=== PATIENT | male | born 1970 | race Caucasian/White ===

== ENCOUNTER → 2020-01-22 07:35 | Outpatient (CLI) | payer OTHER, SELFPAY ==
[2016-10-03 11:35] VITALS: BMI 26.4
[2020-01-22 08:40] LABS: Cholesterol 216 mg/dL (200); Glucose 107 mg/dL (74-106); High Density Lipoprotein 48 mg/dL; Triglycerides 128 mg/dL; Very Low Density Lipoprotein 26 mg/dL (5-40)
== END ==
PROVIDERS: PCP Family Medicine; Referring Provider Family Medicine; Visit Provider Family Medicine
DX: Z13.220 Encounter for screening for lipoid disorders (principal); Z13.1 Encounter for screening for diabetes mellitus
CPT/HCPCS: 36415; 80061; 82947

== ENCOUNTER → 2020-03-31 14:55 | Outpatient (CLI) | payer OTHER, SELFPAY ==
[2016-10-03 11:35] VITALS: BMI 26.4
== END ==
PROVIDERS: PCP Family Medicine; Referring Provider Family Medicine; Visit Provider Family Medicine
DX: Z20.828 Contact with and (suspected) exposure to other viral communicable diseases (principal)
CPT/HCPCS: 87635; U0003

== ENCOUNTER 2020-04-12 07:57 | Day surgery (SDC) | payer OTHER, SELFPAY ==
[2016-10-03 11:35] VITALS: BMI 26.4
[2020-04-12 08:15] VITALS: BP 124/96; PULSE 56; RESP 16; TEMP 36.8; O2SAT 99; BMI 27.1
[2020-04-12] MEDS: Lactated Ringers 1,000 ML 100 ML IV (08:52)
--- NOTE | 2020-04-12 09:04 | H&P.OPEN ---
History of Present Illness Date of Admission: 04/12/20 The patient is a 49 year old M notes for colonoscopy. Patient's father had colon cancer at age 72. He has never had a colonoscopy Past Medical/Surgical History - Planned Operation Planned Operative Procedure/s: COLONOSCOPY Date of Operative Procedure: 04/12/20 Permit Signed: Yes S.O.S: No Is This Patient Having a Total Joint: No - Previous Hospitalizations/Surgeries HX of Surgeries: 2012 HERNIA REPAIR. VASECTOMY 2015. GANGLION CYST RIGHT WRIST 1995. WISDOM TEETH REOMVAL 1986. R CLAVICLE ORIF 10/03/16 Any Problems With Anesthesia: Yes - AGITATION, SLOW RECOVERY You/Your Family Experience Fever (Hyperthermia) With Anes: No Cholinesterase deficiency: No - Cardiovascular Hx Chest Pain within Last 2 months: No Hx of Irregular Heartbeat and/or Afib: No Hx Heart Attack: No Hx Congestive Heart Failure: No Hx Rheumatic Fever: No Hx Hypertension: No Hx Internal Defibrillator: No Hx Pacemaker: No Hx Cardiac Catheterization: No Hx Cardiac Surgery/Stents/Etc.: No Hx Stress Test: No HX Edema: No Hx Pain in Legs when Walking/Leg Cramps: No - Respiratory Chronic Cough: No HX of Shortness of Breath: No Hoarseness: No Hx Chronic Obstructive Pulmonary Disease (COPD): No Hx Asthma: Yes - EXERCISED INDUCED, SEASONAL ALLERGIES Hx Emphysema: No Hx Sleep Apnea: No CPAP: No Hx Oxygen Use at Home: No Hx Respiratory Tract Infection/Cold (presently): No Do You Snore Loudly (louder than talking or can be heard): No Do You Often Feel Tired/ Fatigued/ Sleepy Dring Daytime?: No Has Anyone Observed You Stop Breathing During Sleep?: No Result (for STOP score): Negative Hx Smoking: No Smoking Status: Never smoker - Gastrointestinal Hx Gastroesophageal Reflux: No - OCCASIONAL HEARTBURN Hx Gastrointestinal Disorders: No Hx Gastrointestinal Bleed: No Hx Ulcer: No Hx Hiatal Hernia: No Difficulty Chewing/Swallowing: No Recent Onset of Swallowing Problems: No Special diet followed at home: No Hx Unplanned Weight Loss of 20#: No HX Unplanned Weight Gain of 20#: No - Neurological Hx Seizures: No HX Syncope/Blackout Spells/Unconsciousness: No Hx CVA/Stroke: No Hx Transient Ischemic Attacks (TIA): No Hx Multiple Sclerosis: No Hx Parkinson's Disease: No Hx Head/Neck Injury: Yes - CONCUSSION 1983 Hx Headaches: No Hx Back Injury/Pain: No Recent Onset of Speech Difficulty: No Restless Legs: No Does patient have nerve stimulator: No - Blood Disorder Hx Leukemia: No Bleeding Tendencies: No Hx Deep Vein Thrombosis: No Hx High Cholesterol: No Blood Transmitted Disease: No Hx Hepatitis: No Hx Cirrhosis: No Hx Anemia: No Hx Blood Disorders: No - Genitourinary Hx Renal Disease: No - Musculoskeletal Hx Arthritis: Yes - HANDS Hx Rheumatoid Arthritis: No Hx Gout: No Recent Onset of an Orthopedic Problem: No - Endocrine Hx Diabetes: No Thyroid Disease: No Hx Steroid Therapy: No - Psycho/Social Hx Substance Use: No Hx Alcohol Use: Yes - OCCASIONAL GLASS WINE Hx Anxiety: No Hx Depression: No Mental Illness: No Hx Dementia: No - Miscellaneous Hx Cancer: No Recent Exposure to Contagious Disease: No Active MRSA: No Hx of C-Diff: No Any Loose Teeth: No Allergies No Known Allergies Allergy (Verified 04/06/20 15:51) - Discharge Is Pt Admitted From a Retirement, or a Detention: No Who Could Help: After D/C, Where Do you Plan to Go: Return Home - Physical Exam Vitals/I&O's: Vital Signs Temp Pulse Resp BP Pulse Ox 98.2 F 56 L 16 124/96 H 99 04/12/20 08:15 04/12/20 08:15 04/12/20 08:15 04/12/20 08:15 04/12/20 08:15 Oxygen Delivery Method Room Air Weight: 172 lb 13.478 oz Body Mass Index (BMI) 27.1 General: Alert, Oriented x3 Lungs: Clear to auscultation Cardiovascular: Regular rate, Regular Rhythm, No murmurs Abdomen: Bowel Sounds Present, Soft, Non Tender, Non-Distended Current Medications Lactated Ringer's () 1,000 mls @ 100 mls/hr IV .Q10H APPLE Last Admin: 04/12/20 08:52 Dose: 100 mls/hr Documented by: Assessment/Plan I will be perform a colonoscopy. Procedure Criteria Procedure Type: Elective COVID Risk Discussion: The surgeon/proceduralist and patient have discussed in detail the risk of exposure to and/or potential harm posed by the COVID-19 virus with having a surgery/procedure at this time versus the risk of delaying the surgery/procedure. It is not possible to know either the risk of delaying the surgery or procedure or chance of getting an infection with perfect accuracy, but a joint decision was made between the patient and the surgeon/proceduralist to proceed at this time with the scheduled surgery/procedure as indicated on the consent form. Surgery Risks - Colonoscopy Risks Include but are not Limited To: Risks include but are not limited to: Bleeding, perforation requiring further surgery, inability to complete colonoscopy requiring barium enema.
[2020-04-12 09:37] VITALS: BP 113/73; BP 124/96; PULSE 62; RESP 14; TEMP 36.9; O2SAT 97
[2020-04-12 09:40] VITALS: BP 108/70; BP 124/96; PULSE 61; RESP 14; O2SAT 96
--- NOTE | 2020-04-12 09:40 | OP.COLON_ITS ---
Patient Name: Carlton Sagastume Procedure Date: 04/12/2020 9:08 AM Date of : 1970 Age: 49 Procedure: Colonoscopy Indications: Screening in patient at increased risk: Family history of 1st-degree relative with colorectal cancer Providers: Deven Friedman MD Referring MD: Don Pacheco Medicines: See the Anesthesia note for documentation of the administered medications Patient Profile: This is a 49 year old male. Refer to note in patient chart for documentation of history and physical. Last Colonoscopy: none. The patient's first colonoscopy is today. Complications: No immediate complications. Procedure: Pre-Anesthesia Assessment: - Prior to the procedure, a History and Physical was performed, and patient medications and allergies were reviewed. The patient's tolerance of previous anesthesia was also reviewed. The risks and benefits of the procedure and the sedation options and risks were discussed with the patient. All questions were answered, and informed consent was obtained. Prior Anticoagulants: The patient has taken no previous anticoagulant or antiplatelet agents. ASA Grade Assessment: II - A patient with mild systemic disease. After reviewing the risks and benefits, the patient was deemed in satisfactory condition to undergo the procedure. After I obtained informed consent, the scope was passed under direct vision. Throughout the procedure, the patient's blood pressure, pulse, and oxygen saturations were monitored continuously. The colonoscope was introduced through the anus and advanced to the cecum, identified by appendiceal orifice and ileocecal valve. The colonoscopy was performed without difficulty. The patient tolerated the procedure well. The quality of the bowel preparation was good. Scope In: 9:20:14 AM Scope Withdrawal Time 0 hours 8 minutes 19 seconds Scope Out: 9:33:28 AM Total Procedure Duration Time 0 hours 13 minutes 14 seconds Findings: A few small-mouthed diverticula were found in the sigmoid colon. No biopsies or other specimens were collected for this exam. Non-bleeding internal hemorrhoids were found during retroflexion. The hemorrhoids were mild and small. The exam was otherwise without abnormality. Impression: - Diverticulosis in the sigmoid colon. No specimens collected. - Non-bleeding internal hemorrhoids. - The examination was otherwise normal. Recommendation: - Discharge patient to home. - Resume previous diet. - Continue present medications. - Repeat colonoscopy in 5 years for surveillance. - Return to primary care physician at appointment to be scheduled. Procedure Code(s): --- Professional --- 41945, Colonoscopy, flexible; diagnostic, including collection of specimen(s) by brushing or washing, when performed (separate procedure) Diagnosis Code(s): --- Professional --- Z80.0, Family history of malignant neoplasm of digestive organs K64.8, Other hemorrhoids K57.30, Diverticulosis of large intestine without perforation or abscess without bleeding CPT copyright 2017 [employer]. All rights reserved. The codes documented in this report are preliminary and upon maintenance services dispatcher review may be revised to meet current compliance requirements. MD Deven Villa MD 04/12/2020 9:39:41 AM This report has been signed electronically. Number of Addenda: 0 Note Initiated On: 04/12/2020 9:08 AM
--- NOTE | 2020-04-12 09:40 | OP.CCLET_ITS ---
04/12/2020 Don Pacheco [address] [place] [address] Re : Colonoscopy procedure for Carlton Sagastume Dear Dr. Pacheco This procedure was performed on Sunday, April 12, 2020. My impressions and recommendations are as follows: Impressions : - Diverticulosis in the sigmoid colon. No specimens collected. - Non-bleeding internal hemorrhoids. - The examination was otherwise normal. Recommendations : - Discharge patient to home. - Resume previous diet. - Continue present medications. - Repeat colonoscopy in 5 years for surveillance. - Return to primary care physician at appointment to be scheduled. My findings are described in the full procedure note, which is enclosed. If I can be of further assistance, please feel free to contact me at Doctor phone number(s): , Fax: [phone], Work: . Sincerely, MD Deven Villa MD 04/12/2020 9:39:41 AM This report has been signed electronically.
[2020-04-12 09:45] VITALS: BP 106/84; BP 124/96; PULSE 56; RESP 14; O2SAT 96
[2020-04-12 09:50] VITALS: BP 111/79; BP 124/96; PULSE 59; RESP 14; TEMP 36.5; O2SAT 95
[2020-04-12 10:11] VITALS: BP 124/96
== END 2020-04-12 10:17 | disposition home or self-care (01) ==
LOC: EN 08:05 → AC 08:05
PROVIDERS: Anesthesiology; PCP Family Medicine; Referring Provider Family Medicine; Visit Provider Surgery
PROC: 0DJD8ZZ Inspection of Lower Intestinal Tract, Via Natural or Artificial Opening Endoscopic (ICD-10-PCS; CPT 45378; principal; 2020-04-12 08:55)
DX: Z12.11 Encounter for screening for malignant neoplasm of colon (principal); K57.30 Diverticulosis of large intestine without perforation or abscess without bleeding; K64.8 Other hemorrhoids; Z11.59 Encounter for screening for other viral diseases; J45.909 Unspecified asthma, uncomplicated; Z80.0 Family history of malignant neoplasm of digestive organs
CPT/HCPCS: 45378; 87635; G2023; J7120; J1610; J2405; U0003

== ENCOUNTER → 2021-08-23 | Outpatient (CLI) | payer OTHER, SELFPAY | END | disposition home or self-care (01) | LOC: LABSPEC 16:51 | PROVIDERS: PCP Family Medicine; Referring Provider Family Medicine; Visit Provider Family Medicine | DX: Z11.52 Encounter for screening for COVID-19 (principal) | CPT/HCPCS: 87635; U0005; U0003 ==

== ENCOUNTER → 2022-10-16 | Outpatient (CLI) | payer BC, SELFPAY ==
[2022-10-16 10:37] LABS: AST(SGOT) 15 U/L (15-37); Alanine Aminotransfer ALT/SGPT 27 U/L (16-61); Albumin, Serum 3.8 g/dL (3.2-5.0); Alkaline Phosphatase 57 U/L (45-117); Anion Gap 7 (5-15); BUN 16 mg/dL (7-18); BUN/Creat Ratio 15.5 RATIO (10-20); Calcium,Total 8.7 mg/dL (8.5-10.1); Chloride 106 mmol/L (98-107); Cholesterol 233 mg/dL (200); Creatinine, Serum 1.03 mg/dL (0.70-1.30); EST Glomerular Filtration Rate 80 mL/min (>60); Est Glom Filt Rate - Afr Amer 97 mL/min (>60); Globulin 3.7 g/dL (2.2-4.2); Glucose 112 mg/dL (74-106); High Density Lipoprotein 52 mg/dL; Potassium 4.1 mmol/L (3.5-5.1); Protein, Total 7.5 g/dL (6.4-8.2); Sodium Level 139 mmol/L (136-145); Triglycerides 104 mg/dL; Very Low Density Lipoprotein 21 mg/dL (5-40)
[2022-10-16 10:51] LABS: Vitamin D,25 Hydroxy 25.4 ng/mL
== END | disposition home or self-care (01) ==
PROVIDERS: PCP Family Medicine; Referring Provider Family Medicine; Visit Provider Family Medicine
DX: Z86.19 Personal history of other infectious and parasitic diseases (principal); Z13.220 Encounter for screening for lipoid disorders; Z13.21 Encounter for screening for nutritional disorder
CPT/HCPCS: 36415; 80053; 80061; 82306

== ENCOUNTER → 2023-11-26 | Outpatient (CLI) | payer BC, SELFPAY ==
--- OUTSIDE RECORDS SUMMARY | 2023-11-26 07:39 | XMS RPT_ITS | CCD ---
Author Name Unknown Address [address] [place] [address] Organization [facility] Care Team Providers Care Digital Account Manager Name Role Phone Micheal Dangelo Unavailable Problems Active Problems Problem Classification Problem Date Documented Da te Episodic/Chronic Unclassified (2 sources) Aftercare ; Translations: [Encounter for other orthopedic aftercare] Onset: 10-17-2016 10-23-2016 Past or Other Problems Problem Classification Problem Date Documented Da te Episodic/Chronic Abdominal hernia (2 sources) Inguinal hernia; Translations: [Unilateral inguinal hernia, without obstruction or gangrene, not specified as recurrent] Onset: 08-04-2012 08-04-2012 Episodic Fracture of upper limb (2 sources) Displaced fracture of shaft of right clavicle, initial encounter for closed fracture; Translations: [Displaced fracture of shaft of right clavicle, initial encounter for closed fracture] Onset: 10-02-2016 10-03-2016 Episodic Other fractures (2 sources) Displaced fracture of shaft of right clavicle, subsequent encounter for fracture with routine healing; Translations: [Displaced fracture of shaft of right clavicle, subsequent encounter for fracture with routine healing] Onset: 01-13-2017 01-13-2017 Episodic Other non-traumatic joint disorders (4 sources) Pain in wrist; Translations: [Pain in right shoulder] Onset: 10-02-2016 10-17-2016 Episodic Results Test Name Value Interpretation Reference Range Facil ity Vital Signs Date Time Vital Sign Value Performing Clinician Facility 10-02-2016 10:01-0500 BMI (Body Mass Index) 25.65 kg/m2 [facility] Work Phone: 10-02-2016 10:01-0500 Weight 74.84 kg [facility] Work Phone: 08-04-2012 13:05-0500 Body Temperature 97.8 [degF] [facility] Work Phone: 08-04-2012 13:05-0500 BP Diastolic 87 mm[Hg] [facility] Work Phone: 08-04-2012 13:05-0500 BP Systolic 128 mm[Hg] [facility] Work Phone: 08-04-2012 13:05-0500 BSA (Body Surface Area) 1.88 m2 [facility] with [facility] Work Phone: 08-04-2012 13:05-0500 Height 170.81 cm [facility] Work Phone: 08-04-2012 13:05-0500 Pulse (Heart Rate) 62 /min [facility] Work Phone: 08-04-2012 13:05-0500 Respiratory Rate 16 /min [facility] Work Phone: Procedures Date Procedure Procedure Detail Performing Clinician Start: 08-27-2012 Prp i/tirso init redu c >5 yr Ca Jacobo Work Phone: Plan of Treatment Date Care Activity Detail Author Start: 01-13-2017 End: 01-13-2017 X-ray exam of collar bone X-Ray, Clavicle [facility] Work Phone: Start: 11-15-2016 End: 11-15-2016 X-ray exam of collar bone X-Ray, Clavicle [facility] Work Phone: Start: 10-17-2016 End: 10-17-2016 X-ray exam of collar bone X-Ray, Clavicle [facility] Work Phone: Start: 10-17-2016 End: 10-17-2016 X-ray exam of wrist X-Ray, Wrist [facility] Work Phone: Additional Source Comments FOR RECORDS PERTAINING TO PATIENTS WHO ARE OR HAVE BEEN ENROLLED IN A CHEMICAL DEPENDENCY/SUBSTANCEABUSE PROGRAM, SOME INFORMATION MAY BE OMITTED. This clinical summary was aggregated from multiple sources. Caution should be exercised in using it in the provision of clinical care. This summary normalizes information from multiple sources, and as a consequence, information in this document may materially change the coding, format and clinical context of patient data. In addition, data may be omitted in some cases. CLINICAL DECISIONS SHOULD BE BASED ON THE PRIMARY CLINICAL RECORDS. [employer] [facility]. provides no warranty or guarantee of the accuracy or completeness of information in this document.
[2023-11-26 08:17] LABS: Hematocrit 44.8 % (40-54); Hemoglobin 15.6 g/dL (13.0-16.5); Mean Corp Hgb Conc 34.8 g/dL (32-36); Mean Corpuscular Hgb 31.5 pg (27.0-32.0); Mean Corpuscular Volume 90.5 fL (80-94); Mean Platelet Vol. 10.2 fl (6.2-12.0); Platelet Count 260 K/mm3 (150-450); RBC Distribution Width CV 11.9 % (11.6-14.6); RBC Distribution Width SD 39.7 fl (35.1-43.9); Red Blood Count 4.95 M/mm3 (4.6-6.2); White Blood Count 4.8 K/mm3 (4.4-11.0)
[2023-11-26 08:47] LABS: Vitamin D,25 Hydroxy 27.4 ng/mL
[2023-11-26 09:02] LABS: Anion Gap 7 (5-15); BUN 15 mg/dL (7-18); BUN/Creat Ratio 14.9 RATIO (10-20); Calcium,Total 8.6 mg/dL (8.5-10.1); Chloride 106 mmol/L (98-107); Cholesterol 250 mg/dL (200); Creatinine, Serum 1.01 mg/dL (0.70-1.30); EST Glomerular Filtration Rate 82 mL/min (>60); Est Glom Filt Rate - Afr Amer 99 mL/min (>60); Glucose 117 mg/dL (74-106); High Density Lipoprotein 48 mg/dL; Sodium Level 139 mmol/L (136-145); Thyroid Stim Hormone (TSH) 2.06 uIU/mL (0.358-3.74); Triglycerides 117 mg/dL; Very Low Density Lipoprotein 23 mg/dL (5-40)
[2023-11-26 10:32] LABS: Hemoglobin A1c 5.4 % (3.8-5.6)
== END | disposition home or self-care (01) ==
LOC: LAB 07:23
PROVIDERS: PCP Family Medicine; Referring Provider Family Medicine; Visit Provider Family Medicine
DX: F43.20 Adjustment disorder, unspecified (principal); Z13.220 Encounter for screening for lipoid disorders
CPT/HCPCS: 36415; 80048; 80061; 82306; 83036; 84403; 84443; 85027

== ENCOUNTER → 2025-07-14 | Outpatient (CLI) | payer BC, SELFPAY ==
[2025-07-14 11:10] LABS: AST(SGOT) 18 U/L (<=37); Alanine Aminotransfer ALT/SGPT 23 U/L (<=46); Albumin, Serum 4.4 g/dL (3.5-5.0); Alkaline Phosphatase 60 U/L (40-129); Anion Gap 9 (5-15); BUN 15 mg/dL (4-19); BUN/Creat Ratio 15.9 RATIO (10-20); Calcium,Total 9.1 mg/dL (7.6-11.0); Carbon Dioxide 26.8 mmol/L (21.0-32.0); Chloride 102 mmol/L (98-108); Cholesterol 254 mg/dL (<=200); Globulin 3.0 g/dL (2.2-4.2); Glucose 116 mg/dL (70-99); Low Density Lipoprotein Calc. 188 mg/dL; PSA,Total - Annual Screen 1.16 ng/mL (0.02-4.00); Potassium 4.6 mmol/L (3.3-5.1); Triglycerides 93 mg/dL; Very Low Density Lipoprotein 19 mg/dL (5-40); Vitamin D,25 Hydroxy 31.3 ng/mL (30-100); cholesterol:hdl ratio screen 5.12
== END | disposition home or self-care (01) ==
LOC: MFPLAB 08:45
PROVIDERS: PCP Family Medicine; Visit Provider Family Medicine
DX: Z12.5 Encounter for screening for malignant neoplasm of prostate (principal); E88.810 Metabolic syndrome
CPT/HCPCS: 36415; 80053; 80061; 82306; 83036; 84153; G0103